=== PATIENT | female | born 1990 | race Caucasian/White ===

== ENCOUNTER 2024-02-01 10:46 | Emergency (ER) | payer OTHER, SELFPAY ==
[2024-02-01] VITALS (13 sets, daily range): BP systolic 86–114; BP diastolic 48–68; PULSE 57–93; RESP 14–21; TEMP 36.7; O2SAT 95–100; BMI 23.3
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
--- NOTE | 2024-02-01 12:51 | PC.NURSE ---
CALL OUT OPERATOR NOTE: RN asked to have a bladder scan done, bladder scan was completed with findings of >999mL in the bladder. RN and provider were made aware.
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
[2024-02-01 13:00] LABS: Add Manual Diff / Slide Review NO; Basophils Absolute Auto 100 /uL (0-100); Basophils Percent Auto 0.8 % (0-2); Eosinophils Absolute Auto 700 /uL (0-450); Eosinophils Percent Auto 6.2 % (2-4); Hematocrit 38.9 % (36-46); Lymphocytes Absolute Auto 2100 /uL (1100-4500); Lymphocytes Percent Auto 20.2 % (25-40); Mean Corpuscular HGB Conc 33.4 % (30-36); Mean Corpuscular Hemoglobin 26.7 PG (26-34); Mean Corpuscular Volume 79.8 fL (80-100); Monocytes Absolute Auto 800 /uL (0-900); Monocytes Percent Auto 7.6 % (3-14); Neutrophils Absolute Auto 6900 /uL (1500-7000); Neutrophils Percent Auto 65.2 % (50-75); Platelet Count 280 X10^3/uL (150-400); Red Blood Cell Count 4.88 X10^6/uL (4.0-5.2); Red Cell Distribution Width 13.9 % (11.6-14.8); White Blood Cell Count 10.6 X10^3/uL (4.5-11.0)
[2024-02-01 13:09] LABS: Alanine Aminotransferase 45 IU/L (<35); Albumin 4.4 g/dL (3.5-5.0); Albumin Globulin Ratio 1.3 (1.0-2.8); Alkaline Phosphatase 68 U/L (38-126); Aspartate Aminotransferase 41 IU/L (14-36); BUN Creatinine Ratio 12.5 (6-22); Bilirubin Total 0.4 mg/dL (0.2-1.3); Blood Urea Nitrogen 9 mg/dL (7-17); Calcium 9.3 mg/dL (8.4-10.2); Carbon Dioxide 25 mmol/L (22-32); Chloride 105 mmol/L (98-107); Estimated Glomerular Filt Rate > 60 mL/min (>60); Globulin 3.4 g/dL (1.7-4.1); Glucose 97 mg/dL (70-100); HEMOLYSIS < 15 (0-50); Potassium 4.1 mmol/L (3.4-5.1); Sodium 138 mmol/L (137-145); Total Protein 7.8 g/dL (6.3-8.2)
[2024-02-01 13:22] LABS: Appearance Urine UA SL CLOUDY; Bilirubin Urine UA NEGATIVE (NEGATIVE); Color Urine UA YELLOW; Glucose Urine UA NEGATIVE (Negative); Ketones Urine UA NEGATIVE (NEGATIVE); Leukocyte Esterase Urine UA NEGATIVE (NEGATIVE); Nitrite Urine UA POSITIVE (Negative); Occult Blood Urine UA TRACE-INTACT (Negative); Protein Urine UA NEGATIVE (Negative)
[2024-02-01 13:24] LABS: Pregnancy Test Urine Negative (Negative); Urine Volume 10mL (spun)
[2024-02-01 13:31] LABS: Bacteria Urine Many (>30); Culture Indicated Urine Specimen Cultured; RBC Urine None Seen (0-5/HPF); Squamous Epithelial Cell Urine None Seen (0-5/HPF); WBC Urine None Seen (0-5/HPF)
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
== END 2024-02-01 16:06 | disposition home or self-care (01) ==
PROVIDERS: Emergency Provider Emergency Medicine
DX: N39.0 Urinary tract infection, site not specified (principal); R33.8 Other retention of urine; M54.50 Low back pain, unspecified; S09.8XXD Other specified injuries of head, subsequent encounter; V86.55XD Driver of 3- or 4- wheeled all-terrain vehicle (ATV) injured in nontraffic accident, subsequent encounter; K59.00 Constipation, unspecified
CPT/HCPCS: 36415; 51798; 72141; 72146; 72148; 80053; 81001; 81025; 85025; 87077; 87086; 87186; 99284

== ENCOUNTER 2024-03-06 10:31 | Outpatient (RCR) | payer OTHER, SELFPAY ==
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
== END 2024-03-16 13:40 | disposition home or self-care (01) ==
LOC: OT 10:31
PROVIDERS: Family Provider Nurse Practitioner Family; PCP Nurse Practitioner Family; Referring Provider Nurse Practitioner Family; Visit Provider Nurse Practitioner Family
DX: M54.9 Dorsalgia, unspecified (principal); S06.9X9S Unspecified intracranial injury with loss of consciousness of unspecified duration, sequela; R33.8 Other retention of urine
CPT/HCPCS: 97165; 97530

== ENCOUNTER → 2024-03-18 10:08 | Outpatient (CLI) | payer OTHER, SELFPAY ==
--- NOTE | 2024-03-18 10:10 | DI.RAD.S_ITS ---
PROCEDURE: XR KNEE RT 3V INDICATIONS: rt knee swelling TECHNIQUE: 3 views of the knee were acquired. COMPARISON: None. FINDINGS: No acute fracture or dislocation. The joint spaces are preserved. No osseous erosions or abnormal soft tissue calcifications. Moderate joint effusion. IMPRESSION: Moderate joint effusion without acute fracture or dislocation. MRI knee without contrast would be recommended for evaluation of intra-articular pathology. Dictated by: Kaleb Clark M.D. on 03/18/2024 at 15:09 Approved by: Kaleb Clark M.D. on 03/18/2024 at 15:10
== END ==
PROVIDERS: Family Provider Nurse Practitioner Family; PCP Nurse Practitioner Family; Referring Provider Nurse Practitioner Family; Visit Provider Nurse Practitioner Family
DX: M25.569 Pain in unspecified knee (principal); M25.461 Effusion, right knee
CPT/HCPCS: 73562

== ENCOUNTER 2024-06-04 17:00 | Outpatient (RCR) | payer OTHER, SELFPAY ==
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
== END 2024-06-11 08:40 | disposition home or self-care (01) ==
LOC: PHYS 17:00
PROVIDERS: Family Provider Nurse Practitioner Family; PCP Nurse Practitioner Family; Referring Provider Nurse Practitioner Family; Visit Provider Nurse Practitioner Family
DX: M54.9 Dorsalgia, unspecified (principal); S06.9X9S Unspecified intracranial injury with loss of consciousness of unspecified duration, sequela; R33.8 Other retention of urine; M25.561 Pain in right knee; R26.81 Unsteadiness on feet; M62.81 Muscle weakness (generalized); R26.89 Other abnormalities of gait and mobility
CPT/HCPCS: 97110; 97112; 97140; 97162; 97535